=== PATIENT | male | born 1995 | race African-American/Black ===

== ENCOUNTER 2020-11-28 10:48 | Emergency (ER) | payer OTHER ==
[~2020-11-28] VITALS: Ht 172.7 cm; Wt 99.0 kg
--- NOTE | 2020-11-28 11:03 | NUR ---
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
[2020-11-28] MEDS ORDERED: ASPIRIN 81 MG TABLET CHEW PO ONE (11:30)
[2020-11-28] MEDS ORDERED: ASPIRIN 81 MG TABLET CHEW ONE (11:32)
[2020-11-28 11:58] LABS: BASOPHILS % (AUTO) 1 % (0-1); EOSINOPHILS % (AUTO) 4 % (1-7); LYMPHOCYTES % (AUTO) 35 % (22-44); MEAN CORPUSCULAR HEMOGLOBIN 30.1 pg (27.5-34.5); MEAN CORPUSCULAR HGB CONC 34.1 g/dL (33.2-36.2); MONOCYTES % (AUTO) 8 % (2-9); NEUTROPHILS % (AUTO) 52 % (42-75); PLATELET COUNT 258 x10^3/uL (130-400); RED BLOOD COUNT 5.95 x10^6/uL (4.38-5.82)
[2020-11-28 11:59] LABS: MD NO
[2020-11-28 12:09] LABS: CALCIUM 8.9 mg/dL (8.5-10.1); CHLORIDE 101 mmol/L (98-107)
[2020-11-28 12:14] VITALS: BP 133/78
[2020-11-28 12:18] LABS: ALANINE AMINOTRANSFERASE 74 U/L (12-78); ALBUMIN 4.3 g/dL (3.4-5.0); ALKALINE PHOSPHATASE 59 U/L (45-117); ANION GAP 6 mmol/L (5-15); BILIRUBIN,TOTAL 0.6 mg/dL (0.2-1.0); CREATININE 1.05 mg/dL (0.7-1.3); TOTAL PROTEIN 8.1 g/dL (6.4-8.2); TROPONIN I < 0.015 ng/mL (0.000-0.045)
[2020-11-28 12:19] LABS: HCT (SEDRATE) 52.6 % (39.2-51.8)
== END 2020-11-28 13:48 | disposition home or self-care (01) ==
LOC: ED 11:45
DX: S23.3XXA Sprain of ligaments of thoracic spine, initial encounter (principal); I30.0 Acute nonspecific idiopathic pericarditis; G89.11 Acute pain due to trauma; I51.7 Cardiomegaly; X58.XXXA Exposure to other specified factors, initial encounter; Y93.89 Activity, other specified; Y92.89 Other specified places as the place of occurrence of the external cause; Y99.8 Other external cause status
CPT/HCPCS: 36415; 80053; 84484; 85025; 85651; 93005; 99284